=== PATIENT | female | born 1960 | race Caucasian/White ===

== ENCOUNTER 2024-02-01 11:06 | Emergency (ER) | payer OTHER, MEDICAID ==
[~2024-02-01] VITALS: Ht 149.9 cm; Wt 59.6 kg
[2024-02-01 12:11] VITALS: BP 148/83; PULSE 106; RESP 17; TEMP 98.6; O2SAT 94
[2024-02-01] MEDS: ACETAMINOPHEN 500 MG TAB PO ONE (12:42)
[2024-02-01] MEDS ORDERED: METF-370 PO (13:09)
[2024-02-01] MEDS ORDERED: IBUP-1454 PO (13:09)
[2024-02-01] MEDS ORDERED: METH-1181 PO (13:11)
== END 2024-02-01 13:16 | disposition home or self-care (01) ==
LOC: ER 11:06
DX: S16.1XXA Strain of muscle, fascia and tendon at neck level, initial encounter (principal); S46.811A Strain of other muscles, fascia and tendons at shoulder and upper arm level, right arm, initial encounter; M19.90 Unspecified osteoarthritis, unspecified site; E78.5 Hyperlipidemia, unspecified; Z79.899 Other long term (current) drug therapy; V46.4XXA Person boarding or alighting a car injured in collision with other nonmotor vehicle, initial encounter; Y93.89 Activity, other specified; Y92.89 Other specified places as the place of occurrence of the external cause; Y99.8 Other external cause status
CPT/HCPCS: 72040; 73030